=== PATIENT | male | born 1975 | race Caucasian/White ===

== ENCOUNTER → 2025-03-02 13:25 | Outpatient (REF) | payer OTHER, SELFPAY | LOC: RCS 13:25 | PROVIDERS: ATTENDING PHYSICIAN Internal Medicine Cardiovascular Disease; FAMILY PHYSICIAN Internal Medicine | DX: R00.2 Palpitations (principal); R06.02 Shortness of breath; E78.49 Other hyperlipidemia | CPT/HCPCS: 93017; 93350 ==